=== PATIENT | female | born 1960 | race Caucasian/White ===

== ENCOUNTER 2019-11-24 21:49 | Emergency (ER) | payer OTHER ==
[2019-11-24] MEDS ORDERED: LIDOCAINE 4%/TETRACAINE 0.5%/EPI 0.18% 5 ML TOPICAL SOLN TOP ONE (22:29)
--- NOTE | 2019-11-24 22:37 | ER Document Report ---
ED Extremity Problem, Lower - General Chief Complaint: Laceration Stated Complaint: LEG INJURY/LACERATION Time Seen by Provider: 11/24/19 22:01 Mode of Arrival: Ambulatory Information source: Patient - [facility] Location: Leg Occurred: Just prior to arrival Where: Indoors Onset/Duration: Sudden Context: Direct blow, Laceration Associated symptoms: denies: Chest pain, Fever Exacerbated by: Nothing Relieved by: Nothing Notes: Patient is a 59-year-old female who presents after an injury to her left alcantara. 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 She complains of bleeding and a wound to her left leg. She denies any other injuries. Patient states her last tetanus was 10 years ago or so and she does not remember when exactly. Past Medical History - General Information source: Patient - Social History Smoking Status: Current Every Day Smoker Frequency of alcohol use: Occasional Drug Abuse: None Family History: Reviewed & Not Pertinent Patient has homicidal ideation: No Review of Systems - Review of Systems Notes: CONSTITUTIONAL: No fever, fatigue or weight loss. SKIN: No rash. Positive for laceration left alcantara. HENT: No congestion, ear pain, or sore throat. EYES: No recent vision problems or eye pain. ENDOCRINE: No polyuria or polydipsia. CARDIOVASCULAR: No chest pain or edema. RESPIRATORY: No cough, shortness of breath, congestion, or wheezing. GASTROINTESTINAL: No abdominal pain, nausea, vomiting, bloody stools or diarrhea. MUSCULOSKELETAL: No joint pain or swelling. LYMPHATIC: No swollen glands. NEUROLOGIC: No seizures. No headache, focal weakness or sensory changes. HEMATOLOGIC: No unusual bruising or bleeding. PSYCHIATRIC: No depression or anxiety. Physical Exam - Vital signs Vitals: Temp Pulse Resp BP Pulse Ox 98.4 F 104 H 14 137/81 H 98 11/24/19 22:06 11/24/19 22:06 11/24/19 22:06 11/24/19 22:06 11/24/19 22:06 - Notes Notes: VITAL SIGNS: Within normal limits. GENERAL: No acute distress, non-toxic appearance. HEAD: Normal with no signs of head trauma. EYES: EOMI, conjunctiva normal, no discharge. EARS: Hearing grossly intact. NOSE: Normal. NECK: Normal range of motion, no tenderness, supple, no lymphadenopathy, No adenopathy, no JVD. CHEST: Clear breath sounds bilaterally. No wheezes, rales, or rhonchi. CARDIAC: Regular rate and rhythm. S1 and S2, without murmurs, gallops, or rubs. VASCULAR: No Edema. ABDOMEN: Normal and soft with no tenderness, no masses or pulsatile masses. GENITOURINARY: Normal, No tenderness LYMPATHTIC: No lymphadenopathy noted. MUSCULOSKELETAL: Good range of motion of all major joints. Extremities without clubbing, cyanosis or edema. NEUROLOGICAL: Alert and oriented x 3. No focal sensory or strength deficits. Speech normal. Follows commands appropriately. PSYCHIATRIC: Normal Affect, judgement and mood. SKIN: 1cm laceration to left anterior alcantara. Bleeding controlled. Course - Re-evaluation Re-evalutation: 11/25/19 01:25 Patient's laceration was sutured without difficulty. Tetanus was also updated. Patient was given strict return precautions including fever, redness at the site, concern for infection. She was instructed to have her stitches removed in 10 to 14 days. She was also instructed to keep bacitracin on the area and to keep it clean and dry. Patient verbalized understanding. - Vital Signs Vital signs: Temp Pulse Resp BP Pulse Ox 97.9 F 91 15 141/81 H 100 11/25/19 00:24 11/25/19 00:24 11/25/19 00:24 11/25/19 00:24 11/25/19 00:24 Procedures - Laceration/Wound Repair Right Leg Time completed: 00:08 Wound length (cm): 1 Wound's Depth, Shape: Superficial Laceration pre-procedure: Sterile PPE donned, Betadine prep applied, Sterile drapes applied Anesthetic type: Other - LET Wound explored: Clean Irrigated w/ Saline (mLs): 100 Wound Repaired With: Sutures Suture Size/Type: Vicryl, 4:0 Number of Sutures: 2 Layer Closure?: No Post-procedure wound care: Sterile dressing applied - bacitracin ointment Post-procedure NV exam normal: Yes Complications: No Discharge - Discharge Clinical Impression: Laceration Condition: Good Disposition: HOME, SELF-CARE Instructions: Laceration Care ([facility]), Tetanus Immunization Given ([facility]) Additional Instructions: You may use bacitracin on the area. Please keep it clean and dry. Return for any fever, redness, worsening pain. Return for suture removal in 10 to 14 days or at your PCP's office.
[2019-11-24] MEDS ORDERED: DIPH/PERTUSS(ACELL)/TETANUS VAC/PF 0.5 ML SYR (>=10YO) IM ONE (22:40)
[2019-11-25 00:25] VITALS: BP 141/81
== END 2019-11-25 00:25 | disposition home or self-care (01) ==
LOC: ER 21:49
PROC: 0HQKXZZ Repair Right Lower Leg Skin, External Approach (ICD-10-PCS; principal; 2019-11-24)
DX: S81.812A Laceration without foreign body, left lower leg, initial encounter (principal); W22.8XXA Striking against or struck by other objects, initial encounter; Y92.238 Other place in hospital as the place of occurrence of the external cause; Y99.0 Civilian activity done for income or pay; F17.200 Nicotine dependence, unspecified, uncomplicated
CPT/HCPCS: 99283; 90471; 90715; 12001; J3490